=== PATIENT | female | born 1990 ===

== ENCOUNTER → 2019-12-29 16:27 | Observation (INO) | END | disposition home or self-care (01) | LOC: 1NENULAB | PROVIDERS: ADMIT Obstetrics & Gynecology; ATTEND Obstetrics & Gynecology ==

== ENCOUNTER 2020-03-01 05:48 | Inpatient (IN) ==
[2020-03-01] MEDS ORDERED: *HR* FentaNYL (PF) 100 MCG/2 ML VIAL IVP PRN (06:09)
[2020-03-01] MEDS ORDERED: Metoclopramide 10 MG/2 ML VIAL IVP PRN (06:09)
[2020-03-01] MEDS ORDERED: miSOPROStoL 25 MCG TABLET VG PRN (06:09)
[2020-03-01] MEDS ORDERED: Famotidine 20 MG/2 ML VIAL IVP PRN (06:09)
[2020-03-01] MEDS ORDERED: Naloxone 0.4 MG/ML INJ IVP PRN (06:09)
[2020-03-01] MEDS ORDERED: Lidocaine 1% 20 ML MDV INFILT PRN (06:09)
[2020-03-01 07:00] LABS: Basophils # 0.1 K/mcL (0.0-0.2); Basophils % 0.5 %; Eosinophils # 0.2 K/mcL (0.0-0.6); Eosinophils % 1.2 %; Hematocrit 34.6 % (35.3-44.9); Hemoglobin 11.5 g/dL (11.5-15.4); Lymphocytes # 3.1 K/mcL (0.6-4.6); Lymphocytes % 23.7 %; Mean Corpuscular HGB Conc 33.2 g/dL (31.6-35.5); Mean Corpuscular Volume 87.2 fL (83.0-100.0); Monocytes # 0.9 K/mcL (0.0-1.3); Monocytes % 6.7 %; Neutrophils # 8.6 K/mcL (1.6-8.9); Platelet Count 357 K/mcL (140-400); Red Blood Count 3.97 M/mcL (3.82-4.97); Red Cell Distribution Width 13.7 % (11.5-14.5); Segmented Neutrophils % 66.9 %; White Blood Count 12.9 K/mcL (4.3-11.1)
[2020-03-01] MEDS ORDERED: EPHEDrine 50 MG/ML VIAL IVP PRN (07:04)
[2020-03-01] MEDS ORDERED: Epidural Premix (fent/bupiv) 110 ML EP SCH (07:15)
[2020-03-01 08:34] LABS: Amphetamine Screen,Urine Negative ng/mL (Cutoff=1000); Barbiturate Screen,Urine Negative ng/mL (Cutoff=200); Benzodiazepines Screen,Urine Negative ng/mL (Cutoff=200); Cannabinoid Screen,Urine Negative ng/mL (Cutoff = 50); Cocaine Screen,Urine Negative ng/mL (Cutoff= 300); Opiate Screen,Urine Negative ng/mL (Cutoff=300); Phencyclidine Screen,Urine Negative ng/mL (Cutoff=25)
[2020-03-01] MEDS ORDERED: miSOPROStoL 25 MCG TABLET PO SCH (11:20)
[2020-03-01] MEDS ORDERED: Oxytocin 20 units/ LR 1000 mL 20 UNIT/1,000 ML BAG IVC ONE (12:27)
[2020-03-01] MEDS ORDERED: Oxytocin 20 units/ LR 1000 mL 20 UNIT/1,000 ML BAG IVC SCH (12:30)
[2020-03-01] MEDS: Ringers Solution, Lactated 1,000 ML IVC SCH ×2 (13:03→20:02)
[2020-03-01] MEDS ORDERED: *HR* Ropivacaine/PF 0.5% 20 ML VIAL ONE (17:32)
[2020-03-01] MEDS ORDERED: Azithromycin 500 MG in 0.9 % Sodium Chloride 250 ML IVPB ONE (23:13)
[2020-03-01] MEDS ORDERED: *HR* FentaNYL (PF) 100 MCG/2 ML VIAL ONE (23:22)
[2020-03-01] MEDS ORDERED: Lidocaine/EPI 1:200k 2% PF 20 ML VIAL ONE (23:22)
[2020-03-01] MEDS ORDERED: CeFAZolin Syr 3,000MG/30 ML 3,000 MG/30 ML SYRINGE IVPB ONE (23:26)
[2020-03-01] MEDS ORDERED: Ondansetron 4 MG/2 ML VIAL ONE (23:34)
[2020-03-01] MEDS ORDERED: Dexamethasone 4 MG/ML VIAL ONE (23:34)
[2020-03-01] MEDS ORDERED: *HR* Oxytocin 10 UNIT/ML VIAL IM ONE (23:49)
[2020-03-01] MEDS ORDERED: *HR* Phenylephrine 10 MG/ML VIAL ONE (23:56)
[2020-03-01] MEDS ORDERED: Ketorolac 30 MG/ML VIAL ONE (23:56)
[2020-03-01] MEDS ORDERED: *HR* Morphine Sulfate/PF 10 MG/10 ML AMPUL ONE (23:58)
[2020-03-02] MEDS ORDERED: *HR* FentaNYL (PF) 100 MCG/2 ML VIAL ONE (00:11)
[2020-03-02] MEDS ORDERED: *HR* OxyCODONE/APAP 10/325 TABLET PO PRN (03:23)
[2020-03-02] MEDS ORDERED: Metoclopramide 10 MG/2 ML VIAL IVP PRN (03:23)
[2020-03-02] MEDS ORDERED: *HR* OxyCODONE/APAP 5/325 TABLET PO PRN (03:23)
[2020-03-02] MEDS ORDERED: Rho Immune Globulin 1,500 UNIT SYRINGE IM ONE ×2 (03:23→14:31)
[2020-03-02] MEDS ORDERED: Naloxone 0.4 MG/ML INJ IVP PRN (03:23)
[2020-03-02] MEDS ORDERED: Sennosides 8.6 MG TABLET PO PRN (03:23)
[2020-03-02] MEDS ORDERED: Ringers Solution, Lactated 1,000 ML IVC SCH (03:23)
[2020-03-02] MEDS ORDERED: Oxytocin 20 units/ LR 1000 mL 20 UNIT/1,000 ML BAG IVC SCH (03:23)
[2020-03-02] MEDS ORDERED: Ondansetron 4 MG/2 ML VIAL IVP PRN (03:23)
[2020-03-02] MEDS ORDERED: Simethicone 80 MG TAB.CHEW PO PRN (03:23)
[2020-03-02] MEDS ORDERED: *HR* Enoxaparin 40 MG/0.4 ML SYRINGE SQ ONE (06:00)
[2020-03-02] MEDS: Ibuprofen 600 MG TABLET PO PRN ×3 (06:25→20:34)
[2020-03-02 06:28] LABS: Basophils % 0.2 %; Hematocrit 29.3 % (35.3-44.9); Immature Granulocytes % 0.7 % (0-4); Lymphocytes # 1.2 K/mcL (0.6-4.6); Lymphocytes % 6.3 %; Mean Corpuscular HGB Conc 33.4 g/dL (31.6-35.5); Mean Corpuscular Hemoglobin 29.4 pg (28.0-33.3); Mean Platelet Volume 9.3 fL (9.4-12.4); Monocytes # 0.6 K/mcL (0.0-1.3); Monocytes % 3.4 %; Neutrophils # 16.6 K/mcL (1.6-8.9); Platelet Count 320 K/mcL (140-400); Red Blood Count 3.33 M/mcL (3.82-4.97); Segmented Neutrophils % 89.4 %; White Blood Count 18.6 K/mcL (4.3-11.1)
[2020-03-02 06:32] LABS: Hemoglobin 9.8 g/dL (11.5-15.4)
[2020-03-02] MEDS ORDERED: NON-FORMULARY MEDICATION 1 EACH EACH (Prenatal Vitamin Tablet 1 TAB) PO SCH (09:00)
[2020-03-02] MEDS: Prenatal Vit/FA 1 EACH TABLET PO SCH (09:04)
[2020-03-02] MEDS: metroNIDAZOLE 500 MG TABLET PO SCH ×4 (09:04→20:34)
[2020-03-02] MEDS ORDERED: Lanolin 7 G OINT...G. TP PRN (18:54)
[2020-03-03] MEDS: metroNIDAZOLE 500 MG TABLET PO SCH ×3 (07:30→21:47)
[2020-03-03] MEDS: Ibuprofen 600 MG TABLET PO PRN ×3 (07:30→21:47)
[2020-03-03] MEDS: Prenatal Vit/FA 1 EACH TABLET PO SCH (07:31)
[2020-03-03] MEDS: Acetaminophen 325 MG TABLET PO PRN (21:47)
[2020-03-04] MEDS: Acetaminophen 325 MG TABLET PO PRN (05:37)
[2020-03-04] MEDS: Ibuprofen 600 MG TABLET PO PRN (05:37)
[2020-03-04 07:54] VITALS: BP 119/86
[2020-03-04] MEDS: Prenatal Vit/FA 1 EACH TABLET PO SCH (08:59)
== END 2020-03-04 11:42 | disposition home or self-care (01) | DRG 788 ==
LOC: 1NENULAB 05:48 → 1NENUOBS 03-02 03:09
PROVIDERS: ADMIT Obstetrics & Gynecology; ATTEND Obstetrics & Gynecology